=== PATIENT | female | born 1970 | race Caucasian/White ===

== ENCOUNTER → 2017-02-15 | Day surgery (SDC) | payer OTHER, BC ==
--- NOTE | 2017-02-16 17:09 | PATH ---
Surgical Pathology Report Patient Name: ANDRY COHEN [facility]. Rec. #: [id number] /Age/Gender: 1970 (Age: 46) / F Account: [id number] Location: [facility] Taken: 02/15/2017 Received: 02/15/2017 Reported: 02/16/2017 Physicians: Praveen Tavarez M.D. Specimen(s) Received RIGHT BREAST DENSITY (MASS) STEREOTACTIC BIOPSY Clinical History Nonpalpable lesion Mammographic findings: Suspicious Final Diagnosis BREAST, RIGHT, DENSITY (MASS), STEREOTACTIC BIOPSY: BENIGN BREAST TISSUE SHOWING STROMAL FIBROSIS AND MILD USUAL DUCTAL HYPERPLASIA (UDH). Electronically Signed Andreia Wang M.D. Gross Description Received in formalin, labeled "right breast with mass," are 8 faust-yellow, cylindrical portions of fibroadipose tissue ranging from 0.8-4.0 cm. in length and averaging 0.3 cm. in diameter. The specimen is submitted in toto in 2 cassettes. Time to formalin fixation: 6 minutes Total formalin fixation time: Approximately 6 hours. 02/15/2017 [facility]02/15/2017
== END | disposition home or self-care (01) ==
LOC: FMAMMOTONE 11:21
PROVIDERS: ATTEND Obstetrics & Gynecology
PROC: 0HBT3ZX Excision of Right Breast, Percutaneous Approach, Diagnostic (ICD-10-PCS; principal; 2017-02-15)
DX: N60.31 Fibrosclerosis of right breast (principal); N60.81 Other benign mammary dysplasias of right breast; N63 Unspecified lump in breast
CPT/HCPCS: 19081; 88305-TC; A4648

== ENCOUNTER 2017-05-16 16:49 | Inpatient (IN) | payer BC, OTHER ==
--- NOTE | 2017-05-16 17:13 | PDOC ---
History of Present Illness - General History Source: Patient Exam Limitations: No Limitations - History of Present Illness Initial Comments: 05/16/17 18:04 The patient is a 46 year old female, with a significant past medical history of HTN, HLD, Hypothyroidism who presents to the emergency department with worsening dyspnea today. Patient's dyspnea began earlier this month due to her recent move. Patient reports intermittent dyspnea with associated productive ( white) cough and clear rhinnorhea. Today, patient's difficulty breathing progressively worsened at home. Patient took one albuterol treatment with no relief. Patient's mother called EMS and was brought to the ED for further evaluation. EMS administered 1 albuterol tratment and IV Decadron. Upon evaluation, patient's vital signs are significant for 102 HR. She denies chest pain, headache or dizziness. She denies fever, chills, abdominal pain, nausea, vomit, diarrhea or constipation. She denies dysuria, frequency, urgency or hematuria. Patient denies recent travel. Allergies: NKA Past surgical history: C section and appendectomy Social history: Recreational MJ use PCP: Dr. Oumar Peterson <Avani Elizalde - Last Filed: 05/16/17 18:26> <Jay Ramos - Last Filed: 05/16/17 22:52> - General Chief Complaint: Shortness of Breath Stated Complaint: Shortness of Breath Time Seen by Provider: 05/16/17 17:13 Past History <Avani Elizalde - Last Filed: 05/16/17 18:26> - Past Medical History COPD: No HTN: Yes Hypercholesterolemia: Yes Thyroid Disease: Yes - Surgical History Appendectomy: Yes - Immunization History Immunization Up to Date: No - Suicide/Smoking/Psychosocial Hx Smoking History: Unknown if ever smoked Have you smoked in the past 12 months: No Hx Alcohol Use: Yes Drug/Substance Use Hx: Yes (marijuana) Substance Use Type: Marijuana <Jay Ramos - Last Filed: 05/16/17 22:52> - Past Medical History Allergies/Adverse Reactions: Allergies Allergy/AdvReac Type Severity Reaction Status Date / Time No Known Allergies Allergy Verified 05/16/17 18:18 Home Medications: Ambulatory Orders Levothyroxine [Synthroid -] 0.135 mg PO DAILY 08/31/15 Rosuvastatin Calcium [Crestor] 5 mg PO DAILY 08/31/15 Review of Systems - Review of Systems Able to Perform ROS?: Yes Comments:: 05/16/17 18:04 CONSTITUTIONAL: No fever, no chills, no fatigue EYES: No visual changes ENT: No ear pain, no sore throat CARDIOVASCULAR: No chest pain, no palpitations RESPIRATORY: +Difficulty breathing. + cough, +SOB GI: No abdominal pain, no nausea, no vomiting, no constipation, no diarrhea GENITOURINARY: No dysuria, no frequency, no hematuria MUSKULOSKELETAL: No back pain, no joint pain, no myalgias SKIN: No rash NEURO: No headache <Avani Elizalde - Last Filed: 05/16/17 18:26> *Physical Exam - Vital Signs Last Vital Signs Temp Pulse Resp BP Pulse Ox 98.6 F 102 H 19 151/80 97 05/16/17 17:04 05/16/17 17:04 05/16/17 17:04 05/16/17 17:04 05/16/17 17:04 - Physical Exam Comments: 05/16/17 18:04 CONSTITUTIONAL: Well-appearing; well-nourished; in no apparent distress HEAD: Normocephalic; atraumatic EYES: PERRL; EOM intact ENMT: External appears normal; normal oropharynx NECK: Supple; nontender; no cervical lymphadenopathy CARD: Normal S1, S2; no murmurs, rubs, or gallops RESP:+bilateral inspiratory and expiratory wheezing Normal chest excursion with respiration; breath equal bilaterally; no rhonchi, or rales ABD: Soft, non-distended; non-tender; no palpable organomegaly, no palpable hernias EXT: Normal ROM in all four extremities; non-tender to palpation; distal pulses intact SKIN: Warm, dry, no rash NEURO: No focal neurological deficiencies. <Avani Elizalde - Last Filed: 05/16/17 18:26> - Vital Signs Last Vital Signs Temp Pulse Resp BP Pulse Ox 98.6 F 102 H 19 151/80 97 05/16/17 17:04 05/16/17 17:04 05/16/17 17:04 05/16/17 17:04 05/16/17 17:04 <Jay Ramos - Last Filed: 05/16/17 22:52> Heart Score/ECG Review #1 05/16/17 18:26 ECG Reviewed by me 93 bpm NSR Normal ECG <Avani Elizalde - Last Filed: 05/16/17 18:26> ED Treatment Course - LABORATORY CBC & Chemistry Diagram: 05/16/17 17:29 05/16/17 17:29 - Medications Given in the ED: ED Medications Discontinued Medications Generic Name Dose Route Start Last Admin Trade Name Freq PRN Reason Stop Dose Admin Albuterol/Ipratropium 2 amp 05/16/17 17:37 05/16/17 17:48 Duoneb - NEB 05/16/17 17:38 2 amp ONCE ONE Administration <Avani Elizalde - Last Filed: 05/16/17 18:26> - LABORATORY CBC & Chemistry Diagram: 05/16/17 17:29 05/16/17 17:29 <Jay Ramos - Last Filed: 05/16/17 22:52> Medical Decision Making - Medical Decision Making 05/16/17 18:44 Patient is a 46-year-old female who presents with signs and symptoms of reactive airway disease. In the ER, patient is awake and alert, afebrile, with oxygen saturation of 98% on room air, with inspiratory and expiratory wheezing and bronchial breathing bilaterally. Patient received Combivent and Decadron by EMS. Will continue with Combivent therapy. Will obtain chest x-ray to rule out infiltrate. Will reassess. 05/16/17 21:53 Patient continues to be dyspneic and tachypneic; air entry is limited bilaterally; inspiratory and expiratory wheezing is present in all lung arguello. Patient's received additional albuterol nebulizers as well as magnesium sulfate without significant improvement. Patient will require admission for what appears to be acute asthma exacerbation. <Jay Ramos - Last Filed: 05/16/17 22:52> *DC/Admit/Observation/Transfer - Attestations Scribe Attestion: 05/16/17 18:04 Documentation prepared by Avani Elizalde, acting as nuclear medical tech for Jay Ramos MD <Avani Elizalde - Last Filed: 05/16/17 18:26> - Discharge Dispostion Admit: Yes - Attestations Physician Attestion: 05/16/17 18:44 The documentation was prepared by the scribe under my direct supervision. I have reviewed the documentation which correctly represents the findings, medical decision-making and critical action taken by me. <Jay Ramos - Last Filed: 05/16/17 22:52> Diagnosis at time of Disposition: Acute asthma exacerbation Qualifiers: Asthma severity: unspecified severity Asthma persistence: intermittent Qualified Code(s): J45.21 - Mild intermittent asthma with (acute) exacerbation - Discharge Dispostion Condition at time of disposition: Fair - Referrals Referrals: Oumar Peterson MD [Primary Care Provider] - - Patient Instructions - Post Discharge Activity
[2017-05-16] MEDS ORDERED: ALBUTEROL SO4 2.5/IPRATROPIUM 0.5 INH SOL 3 ML VIAL.NEB. NEB ONE ×2 (17:37→17:40)
[2017-05-16 17:57] LABS: BASOPHIL 0.3 % (0-2.0); EOSINOPHIL 3.3 % (0-4.5); MCH 29.6 pg (25.7-33.7); MCHC 33.8 g/dl (32.0-36.0); MEAN CELL VOLUME 87.6 fl (80-96); MEAN PLT VOLUME 6.9 fl (7.5-11.1); NEUTROPHILS 82.7 % (42.8-82.8); PLATELET COUNT 306 K/MM3 (134-434); WHITE BLOOD COUNT 11.3 K/mm3 (4.0-10.0)
[2017-05-16 18:44] LABS: ALBUMIN 3.8 g/dl (3.4-5.0); ALK PHOS 63 U/L (45-117); ANION GAP 11 (8-16); BILIRUBIN,TOTAL 0.3 mg/dL (0.2-1.0); CALCIUM 8.5 mg/dL (8.5-10.1); CO2 23 mmol/L (21-32); CREATININE 0.7 mg/dL (0.55-1.02); GLUCOSE,RANDOM 108 mg/dL (74-106); SGOT/AST 15 U/L (15-37); SGPT/ALT 25 U/L (12-78); TOT PROT 7.5 g/dl (6.4-8.2)
[2017-05-16] MEDS ORDERED: ALBUTEROL SO4 0.083% IH SOL 2.5 MG/3 ML VIAL.NEB. NEB ONE ×4 (19:29→21:15)
[2017-05-16] MEDS ORDERED: MAGNESIUM SULF 50% (8.12 MEQ/2 ML-1 GM VIAL) IVPB ONE (19:30)
[2017-05-16] MEDS ORDERED: MAGNESIUM SULF 50% (8.12 MEQ/2 ML-1 GM VIAL) ONE (19:33)
[2017-05-17] MEDS: ALBUTEROL SO4 0.083% IH SOL 2.5 MG/3 ML VIAL.NEB. NEB SCH ×2 (00:11→07:24)
[2017-05-17 01:45] VITALS: BMI 33.7
[2017-05-17] MEDS: methylPREDNISolone NA SUCC 125 MG/2 ML VIAL IVPUSH SCH ×2 (02:35→10:55)
[2017-05-17 07:05] LABS: MCH 29.4 pg (25.7-33.7); MCHC 33.3 g/dl (32.0-36.0); MEAN CELL VOLUME 88.1 fl (80-96); MEAN PLT VOLUME 7.1 fl (7.5-11.1); PLATELET COUNT 287 K/MM3 (134-434); RDW 13.3 % (11.6-15.6)
[2017-05-17 07:14] LABS: INR 1.08 (0.82-1.09); PROTHROMBIN TIME (PATIENT) 12.2 SEC (9.98-11.88)
[2017-05-17 07:30] LABS: ALBUMIN 3.7 g/dl (3.4-5.0); ANION GAP 10 (8-16); CALCIUM 9.1 mg/dL (8.5-10.1); CO2 23 mmol/L (21-32); GLUCOSE,RANDOM 166 mg/dL (74-106)
[2017-05-17 07:36] LABS: ALK PHOS 64 U/L (45-117); BILIRUBIN,TOTAL 0.6 mg/dL (0.2-1.0); CREATININE 0.9 mg/dL (0.55-1.02); SGOT/AST 10 U/L (15-37); SGPT/ALT 23 U/L (12-78); TOT PROT 7.3 g/dl (6.4-8.2)
[2017-05-17] MEDS ORDERED: LEVOTHYROXINE NA 125 MCG TABLET (FP) PO SCH (10:00)
--- NOTE | 2017-05-17 11:08 | EKG ---
Test Reason : Blood Pressure : / mmHG Vent. Rate : 093 BPM Atrial Rate : 093 BPM P-R Int : 150 ms QRS Dur : 088 ms QT Int : 366 ms P-R-T Axes : 038 060 026 degrees QTc Int : 455 ms NORMAL SINUS RHYTHM NORMAL ECG WHEN COMPARED WITH ECG OF 31-AUG-2015 17:11, RSR' PATTERN IN V1 IS NO LONGER PRESENT Confirmed by XOCIHLT KINGSTON MD ([id number]) on 05/17/2017 11:08:30 AM Referred By: Confirmed By:XOCHILT KINGSTON MD
--- NOTE | 2017-05-17 11:49 | CON.PULM ---
Consult Consult Specialty:: PULMONARY Referred by:: Dr. Peterson Reason for Consultation:: shortness of breath - History of Present Illness Chief Complaint: shortness of breath History of Present Illness: 46yo female with h/o HTN, hyperlipidemia, hypothyroidism who presents with 2 days of worsening shortness of breath. She had been moving boxes in a claudine room which triggered her symptoms including chest tightness, wheezing and a cough productive of clear sputum but sometimes with yellow streaks. No fevers, chills or sweats. 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 No cigarette smoke. She feels her breathing has not been normal since March since school started with occasional wheezing. - History Source History Provided By: Patient, Medical Record Limitations to Obtaining History: No Limitations - Past Medical History Gastrointestinal: Yes: Constipation, Hemorrhoids ...LMP: 08/26/15 - Past Surgical History Past Surgical History: Yes: Appendectomy, - Alcohol/Substance Use Hx Alcohol Use: Yes History of Substance Use: reports: Marijuana (1-2 joints/day) - Smoking History Smoking history: Unknown if ever smoked Have you smoked in the past 12 months: No - Social History Occupation: Teacher Home Medications - Allergies Allergies/Adverse Reactions: Allergies Allergy/AdvReac Type Severity Reaction Status Date / Time No Known Allergies Allergy Verified 05/16/17 18:18 - Home Medications Home Medications: Ambulatory Orders Levothyroxine [Synthroid -] 150 mg PO DAILY 08/31/15 Rosuvastatin Calcium [Crestor] 5 mg PO DAILY 08/31/15 Family Disease History - Family Disease History Family Disease History: Diabetes: Father (colon?, prostate?), Heart Disease: Father, Mother (colon?, asthma), CA: Father, Mother, Brother (skin), Respiratory : Mother Other Family History: 2 siblings with asthma Review of Systems - Review of Systems Constitutional: denies: Chills, Fever Eyes: denies: Recent Change in Vision HENT: reports: Nasal Congestion. denies: Throat Pain Neck: denies: Stiffness, Tenderness Cardiovascular: reports: Shortness of Breath. denies: Chest Pain, Edema, Palpitations Respiratory: reports: Cough, Exercise Intolerance, SOB on Exertion, Wheezing. denies: Hemoptysis Gastrointestinal: reports: Vomiting (with coughing). denies: Abdominal Pain, Nausea Genitourinary: denies: Dysuria, Hematuria Neurological: denies: Dizziness, Headache Physical Exam Vital Sings: Vital Signs Temperature 98.3 F 05/17/17 06:00 Pulse Rate 104 H 05/17/17 06:00 Respiratory Rate 20 05/17/17 06:00 Blood Pressure 126/64 05/17/17 06:00 O2 Sat by Pulse Oximetry (%) 98 05/17/17 00:09 Constitutional: Yes: Calm Eyes: Yes: Conjunctiva Clear, EOM Intact HENT: Yes: Atraumatic, Normocephalic Neck: Yes: Supple, Trachea Midline Cardiovascular: Yes: Regular Rate and Rhythm Respiratory: Yes: Regular, Diminished (decreased air entry), Wheezes (scattered) ...Clubbing: No Gastrointestinal: Yes: Normal Bowel Sounds, Soft. No: Tenderness Edema: No Neurological: Yes: Alert, Oriented Labs: CBC, BMP 05/17/17 06:33 05/17/17 06:33 Imaging - Results Chest X-ray: Report Reviewed, Image Reviewed (no infiltrates) Problem List - Problems (1) Acute asthma exacerbation Code(s): J45.901 - UNSPECIFIED ASTHMA WITH (ACUTE) EXACERBATION Qualifiers: Asthma severity: unspecified severity Asthma persistence: intermittent Qualified Code(s): J45.21 - Mild intermittent asthma with (acute) exacerbation (2) Hyperlipidemia Code(s): E78.5 - HYPERLIPIDEMIA, UNSPECIFIED (3) Hypothyroid Code(s): E03.9 - HYPOTHYROIDISM, UNSPECIFIED Assessment/Plan Acute Asthma Exacerbation Hypothyroidism Hypercholesterolemia - agree with IV medrol, can decrease to 40mg q8h - inhaled bronchodilators standing and PRN - monitor peak flow - ambulate - will need outpt PFTs and follow up - DVT prophylaxis Thank you for this consult Richard Xie MD
[2017-05-17] MEDS ORDERED: ALBUTEROL SO4 0.083% IH SOL 2.5 MG/3 ML VIAL.NEB. NEB PRN (11:52)
[2017-05-17] MEDS: ALBUTEROL SO4 2.5/IPRATROPIUM 0.5 INH SOL 3 ML VIAL.NEB. NEB SCH ×2 (11:56→17:25)
[2017-05-17] MEDS: methylPREDNISolone NA SUCC 40 MG/1 ML VIAL IVPUSH SCH (17:19)
[2017-05-17] MEDS ORDERED: PT OWN MED DRAWER 7, Y5N ONE (21:27)
--- NOTE | 2017-05-17 21:46 | HP ---
Admitting History and Physical - Primary Care Physician PCP: Oumar Peterson - Admission Chief Complaint: SOB, wheezing History of Present Illness: Pt states that mid March caught a cold and since then, on and off, started wheezing and feel SOB. Two days ago she cleaned a claudine room and started wheezing and fell SOB; she felt better getting outside the room. Yesterday morning pt woke up wheezing and feeling SOB; later in AM she started to gasp for air and came to ER. After several treatments she was admitted for asthma exacerbation. Pt states that had an asthmatic episode inn her 20's when was sick with a cold and nothing then. 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 Medications - Allergies Allergies/Adverse Reactions: Allergies Allergy/AdvReac Type Severity Reaction Status Date / Time No Known Allergies Allergy Verified 05/16/17 18:18 - Home Medications Home Medications: Ambulatory Orders Levothyroxine [Synthroid -] 150 mg PO DAILY 08/31/15 Rosuvastatin Calcium [Crestor] 5 mg PO DAILY 08/31/15 Family Disease History - Family Disease History Family Disease History: Diabetes: Father (colon?, prostate?), Heart Disease: Father, Mother (colon?, asthma), CA: Father, Mother, Brother (skin), Respiratory : Mother Other Family History: 2 siblings with asthma Review of Systems - Review of Systems Constitutional: denies: Chills, Fever Eyes: denies: Blurred Vision, Double Vision HENT: denies: Difficult Swallowing, Ear Discharge, Ear Pain, Nasal Congestion, Throat Pain Neck: denies: Pain on Movement, Stiffness Cardiovascular: denies: Chest Pain, Edema, Palpitations Respiratory: reports: Cough, SOB, Wheezing, Other (white sputum) Gastrointestinal: denies: Abdominal Pain, Diarrhea, Nausea Genitourinary: denies: Burning, Discharge Musculoskeletal: denies: Back Pain, Joint Swelling, Muscle Pain Integumentary: denies: Bruising, Rash Neurological: denies: Change in LOC, Change in Speech, Confusion, Dizziness, Unsteady Gait Endocrine: denies: Excessive Sweating, Intolerance to Cold Hematology/Lymphatic: denies: Easily Bruised, Excessive Bleeding Psychiatric: denies: Anxiety, Depression Physical Examination Vital Signs: Vital Signs Temperature 98.7 F 05/17/17 20:43 Pulse Rate 105 H 05/17/17 20:43 Respiratory Rate 20 05/17/17 20:43 Blood Pressure 138/96 05/17/17 20:43 O2 Sat by Pulse Oximetry (%) 98 05/17/17 11:57 Constitutional: Yes: No Distress, Calm Eyes: Yes: Conjunctiva Clear, EOM Intact, PERRL HENT: Yes: Normocephalic, Rhinnorhea. No: Drooling, Epistaxis, Hoarseness, Pharyngeal Erythema Neck: Yes: Trachea Midline. No: Lymphadenopathy Cardiovascular: Yes: Regular Rate and Rhythm, S1, S2 Respiratory: Yes: Regular, Wheezes. No: Rhonchi Gastrointestinal: Yes: Normal Bowel Sounds, Soft. No: Hepatomegaly, Tenderness ...Rectal Exam: Yes: Deferred Renal/: No: CVA Tenderness - Left, CVA Tenderness - Right Breast(s): Yes: Other (deferred) Musculoskeletal: Yes: Joint Swelling. No: Back Pain, Joint Stiffness Edema: No Neurological: Yes: Alert, Oriented, Other (symmetric motor and sensory examination in UE/ LE/ face.) Psychiatric: Yes: Alert, Oriented Labs: CBC, BMP 05/17/17 06:33 05/17/17 06:33 Imaging - Results Chest X-ray: Report Reviewed Problem List - Problems (1) Acute asthma exacerbation Code(s): J45.901 - UNSPECIFIED ASTHMA WITH (ACUTE) EXACERBATION Qualifiers: Asthma severity: unspecified severity Asthma persistence: intermittent Qualified Code(s): J45.21 - Mild intermittent asthma with (acute) exacerbation (2) Hyperlipidemia Code(s): E78.5 - HYPERLIPIDEMIA, UNSPECIFIED (3) Hypothyroid Code(s): E03.9 - HYPOTHYROIDISM, UNSPECIFIED (4) Hypertension Code(s): I10 - ESSENTIAL (PRIMARY) HYPERTENSION Assessment/Plan IV Steroids Albuterol nebulized Pulmonary consult- d/w Dr. GORDILLO To monitor glucose; diet to be adjusted to NCS (continue low salt and low cholesterol) AM labs
[2017-05-17] MEDS: ROSUVASTATIN CA 5 MG TABLET (FP) PO SCH (21:50)
[2017-05-18] MEDS: methylPREDNISolone NA SUCC 40 MG/1 ML VIAL IVPUSH SCH ×3 (01:45→17:48)
[2017-05-18] MEDS: LEVOTHYROXINE NA 150 MCG TABLET PO SCH (06:04)
[2017-05-18] MEDS: ALBUTEROL SO4 2.5/IPRATROPIUM 0.5 INH SOL 3 ML VIAL.NEB. NEB SCH ×4 (06:56→17:33)
[2017-05-18 08:15] LABS: MCH 29.2 pg (25.7-33.7); MCHC 32.6 g/dl (32.0-36.0); MEAN CELL VOLUME 89.6 fl (80-96); MEAN PLT VOLUME 7.3 fl (7.5-11.1); PLATELET COUNT 315 K/MM3 (134-434); RDW 13.6 % (11.6-15.6); WHITE BLOOD COUNT 21.6 K/mm3 (4.0-10.0)
[2017-05-18 08:48] LABS: ANION GAP 12 (8-16); CO2 20 mmol/L (21-32); CREATININE 0.8 mg/dL (0.55-1.02); GLUCOSE,RANDOM 143 mg/dL (74-106)
[2017-05-18 09:34] LABS: TOTAL CELLS COUNTED 100
[2017-05-18 09:35] LABS: PLATELET ESTIMATE ADEQUATE
--- NOTE | 2017-05-18 09:51 | PN ---
Progress Note, Physician History of Present Illness: Pt with some improvement in breathing, still coughs and wheezing, occasionally severe. Pt w/o CP, palp, abd pain. - Current Medication List Current Medications: Active Medications Albuterol Sulfate (Ventolin 0.083% Nebulizer Soln -) 1 amp NEB Q4H PRN PRN Reason: SHORT OF BREATH/WHEEZING Albuterol/Ipratropium (Duoneb -) 1 amp NEB QIDR [facility] Last Admin: 05/18/17 06:56 Dose: 1 amp Hydrochlorothiazide (Hctz -) 12.5 mg PO DAILY [facility] Levothyroxine Sodium (Synthroid -) 150 mcg PO DAILY@0700 [facility] Last Admin: 05/18/17 06:04 Dose: 150 mcg Losartan Potassium (Cozaar -) 50 mg PO DAILY [facility] Methylprednisolone Sodium Succinate (Solu-Medrol -) 40 mg IVPUSH Q8H-IV [facility] Last Admin: 05/18/17 01:45 Dose: 40 mg Rosuvastatin Calcium (Crestor -) 5 mg PO HS [facility] Last Admin: 05/17/17 21:50 Dose: 5 mg - Objective Vital Signs: Vital Signs Temperature 98.4 F 05/18/17 08:58 Pulse Rate 98 H 05/18/17 08:58 Respiratory Rate 20 05/18/17 08:58 Blood Pressure 155/94 05/18/17 08:58 O2 Sat by Pulse Oximetry (%) 96 05/17/17 21:00 Constitutional: Yes: No Distress, Calm Cardiovascular: Yes: Regular Rate and Rhythm, S1, S2 Respiratory: Yes: Regular, CTA Bilaterally. No: Rales Gastrointestinal: Yes: Normal Bowel Sounds, Soft. No: Tenderness Edema: No Neurological: Yes: Alert, Oriented Labs: CBC, BMP 05/18/17 07:30 05/18/17 07:30 INR, PTT INR 1.08 (0.82-1.09) 05/17/17 06:33 Problem List - Problems (1) Acute asthma exacerbation Code(s): J45.901 - UNSPECIFIED ASTHMA WITH (ACUTE) EXACERBATION Qualifiers: Asthma severity: unspecified severity Asthma persistence: intermittent Qualified Code(s): J45.21 - Mild intermittent asthma with (acute) exacerbation (2) Hyperlipidemia Code(s): E78.5 - HYPERLIPIDEMIA, UNSPECIFIED (3) Hypothyroid Code(s): E03.9 - HYPOTHYROIDISM, UNSPECIFIED (4) Hypertension Code(s): I10 - ESSENTIAL (PRIMARY) HYPERTENSION Assessment/Plan IV Steroids Albuterol nebulized Pulmonary consult appreciated To monitor glucose; diet to be adjusted to NCS (continue low salt and low cholesterol) AM labs OOBTC
[2017-05-18] MEDS ORDERED: [UNRECOGNIZED DRUG - OTHER] PO SCH (10:00)
[2017-05-18] MEDS ORDERED: LOSARTAN PO SCH (10:00)
[2017-05-18] MEDS: ACETAMINOPHEN 325 MG TABLET (FP) PO PRN (10:04)
[2017-05-18] MEDS: HYDROCHLOROTHIAZIDE 12.5 MG CAPSULE (FP) PO SCH (10:13)
[2017-05-18] MEDS: LOSARTAN POTASSIUM 50 MG TABLET (FP) PO SCH (10:13)
--- NOTE | 2017-05-18 14:56 | PN ---
Progress Note (short form) - Note Progress Note: PULMONARY VSS/AFEBRILE ANICTERIC SCATTERED MINIMAL EXP WHEEZE S1S2 BS+ NO EDEMA PEAK FLOW PENDING LABS/MEDS/NOTES/IMAGES REVIEWED Acute Asthma Exacerbation Hypothyroidism Hypercholesterolemia - IV medrol tapering - inhaled bronchodilators standing and PRN - monitor peak flow - ambulate - will need outpt PFTs and follow up - DVT prophylaxsis Sarah CHAPA MD
[2017-05-18] MEDS ORDERED: PT OWN MED DRAWER 7, Y5N ONE (21:38)
[2017-05-18] MEDS: ROSUVASTATIN CA 5 MG TABLET (FP) PO SCH (21:40)
[2017-05-19] MEDS: ALBUTEROL SO4 2.5/IPRATROPIUM 0.5 INH SOL 3 ML VIAL.NEB. NEB SCH ×4 (00:05→17:19)
[2017-05-19] MEDS: methylPREDNISolone NA SUCC 40 MG/1 ML VIAL IVPUSH SCH ×3 (01:09→17:34)
[2017-05-19] MEDS: LEVOTHYROXINE NA 150 MCG TABLET PO SCH (06:39)
[2017-05-19] MEDS: ACETAMINOPHEN 325 MG TABLET (FP) PO PRN (06:42)
[2017-05-19 07:49] LABS: MCH 29.3 pg (25.7-33.7); MCHC 32.7 g/dl (32.0-36.0); MEAN CELL VOLUME 89.5 fl (80-96); MEAN PLT VOLUME 7.1 fl (7.5-11.1); PLATELET COUNT 345 K/MM3 (134-434); RDW 13.3 % (11.6-15.6); WHITE BLOOD COUNT 23.2 K/mm3 (4.0-10.0)
[2017-05-19 08:11] LABS: ANION GAP 10 (8-16); CO2 24 mmol/L (21-32); CREATININE 0.8 mg/dL (0.55-1.02); GLUCOSE,RANDOM 131 mg/dL (74-106)
[2017-05-19] MEDS ORDERED: PT OWN MED DRAWER 7, Y5N ONE ×2 (10:38→21:56)
[2017-05-19] MEDS: LOSARTAN POTASSIUM 50 MG TABLET (FP) PO SCH (10:40)
[2017-05-19] MEDS: HYDROCHLOROTHIAZIDE 12.5 MG CAPSULE (FP) PO SCH (10:40)
--- NOTE | 2017-05-19 13:35 | PN ---
Progress Note (short form) - Note Progress Note: PULMONARY 143/95/AFEBRILE ANICTERIC SCATTERED MINIMAL EXP WHEEZE S1S2 BS+ NO EDEMA PEAK FLOW 280 l/m LABS/MEDS/NOTES/IMAGES REVIEWED Acute Asthma Exacerbation Hypothyroidism Hypercholesterolemia - IV medrol tapering - inhaled bronchodilators standing and PRN - monitor peak flow - ambulate - will need outpt PFTs and follow up - DVT prophylaxsis - bp control Sarah CHAPA MD
[2017-05-19] MEDS ORDERED: guaiFENesin 200 MG/10 ML 10 ML UNIT-DOSE CUPS PO PRN (13:37)
--- NOTE | 2017-05-19 13:40 | PN ---
Progress Note, Physician History of Present Illness: Pt with some improvement in breathing, still is coughing and wheezing, occasionally severe;Pt also is coughing and wheezing with walking. Pt w/o CP, palp, abd pain. - Current Medication List Current Medications: Active Medications Acetaminophen (Tylenol -) 650 mg PO Q6H PRN PRN Reason: PAIN LEVEL 1-5 Last Admin: 05/19/17 06:42 Dose: 650 mg Albuterol Sulfate (Ventolin 0.083% Nebulizer Soln -) 1 amp NEB Q4H PRN PRN Reason: SHORT OF BREATH/WHEEZING Albuterol/Ipratropium (Duoneb -) 1 amp NEB QIDR [facility] Last Admin: 05/19/17 11:08 Dose: 1 amp Guaifenesin (Robitussin -) 10 ml PO Q4H PRN PRN Reason: COUGH Hydrochlorothiazide (Hctz -) 12.5 mg PO DAILY [facility] Last Admin: 05/19/17 10:40 Dose: 12.5 mg Levothyroxine Sodium (Synthroid -) 150 mcg PO DAILY@0700 [facility] Last Admin: 05/19/17 06:39 Dose: 150 mcg Losartan Potassium (Cozaar -) 50 mg PO DAILY [facility] Last Admin: 05/19/17 10:40 Dose: 50 mg Methylprednisolone Sodium Succinate (Solu-Medrol -) 20 mg IVPUSH Q8H-IV [facility] Rosuvastatin Calcium (Crestor -) 5 mg PO HS [facility] Last Admin: 05/18/17 21:40 Dose: 5 mg - Objective Vital Signs: Vital Signs Temperature 97.8 F 05/19/17 08:45 Pulse Rate 94 H 05/19/17 08:45 Respiratory Rate 19 05/19/17 08:45 Blood Pressure 143/95 05/19/17 08:45 O2 Sat by Pulse Oximetry (%) 94 L 05/19/17 09:00 Constitutional: Yes: No Distress, Calm Cardiovascular: Yes: Regular Rate and Rhythm, S1, S2 Respiratory: Yes: Regular, CTA Bilaterally, Rales (manly at bases), Wheezes Gastrointestinal: Yes: Normal Bowel Sounds. No: Tenderness Edema: No Neurological: Yes: Alert, Oriented Labs: CBC, BMP 05/19/17 06:45 05/19/17 06:45 INR, PTT INR 1.08 (0.82-1.09) 05/17/17 06:33 Problem List - Problems (1) Acute asthma exacerbation Code(s): J45.901 - UNSPECIFIED ASTHMA WITH (ACUTE) EXACERBATION Qualifiers: Asthma severity: unspecified severity Asthma persistence: intermittent Qualified Code(s): J45.21 - Mild intermittent asthma with (acute) exacerbation (2) Hyperlipidemia Code(s): E78.5 - HYPERLIPIDEMIA, UNSPECIFIED (3) Hypothyroid Code(s): E03.9 - HYPOTHYROIDISM, UNSPECIFIED (4) Hypertension Code(s): I10 - ESSENTIAL (PRIMARY) HYPERTENSION Assessment/Plan IV Steroids Albuterol nebulized. Add Robitussin Pulmonary consult appreciated To monitor glucose; diet to be adjusted to NCS (continue low salt and low cholesterol) AM labs OOBTC
[2017-05-19] MEDS: guaiFENesin/D-M SUGAR-FREE/ACLHOL-FREE 118 ML BOTTLE PO PRN (15:11)
[2017-05-19] MEDS: ROSUVASTATIN CA 5 MG TABLET (FP) PO SCH (21:58)
[2017-05-20] MEDS: ALBUTEROL SO4 2.5/IPRATROPIUM 0.5 INH SOL 3 ML VIAL.NEB. NEB SCH ×3 (00:05→11:46)
[2017-05-20] MEDS: methylPREDNISolone NA SUCC 40 MG/1 ML VIAL IVPUSH SCH ×2 (01:12→09:09)
[2017-05-20] MEDS: LEVOTHYROXINE NA 150 MCG TABLET PO SCH (06:07)
[2017-05-20 08:43] LABS: MCH 29.1 pg (25.7-33.7); MCHC 32.6 g/dl (32.0-36.0); MEAN CELL VOLUME 89.4 fl (80-96); MEAN PLT VOLUME 7.1 fl (7.5-11.1); PLATELET COUNT 350 K/MM3 (134-434); RDW 13.4 % (11.6-15.6); WHITE BLOOD COUNT 17.9 K/mm3 (4.0-10.0)
[2017-05-20] MEDS ORDERED: PT OWN MED DRAWER 7, Y5N ONE ×2 (08:46→09:25)
[2017-05-20 08:48] VITALS: BP 136/88; PULSE 92; TEMP 98.3
[2017-05-20 09:09] LABS: ANION GAP 15 (8-16); CALCIUM 9.3 mg/dL (8.5-10.1); CO2 21 mmol/L (21-32); CREATININE 0.9 mg/dL (0.55-1.02); GLUCOSE,RANDOM 128 mg/dL (74-106)
[2017-05-20] MEDS: HYDROCHLOROTHIAZIDE 12.5 MG CAPSULE (FP) PO SCH (09:10)
[2017-05-20] MEDS: LOSARTAN POTASSIUM 50 MG TABLET (FP) PO SCH (09:10)
[2017-05-20] MEDS: guaiFENesin/D-M SUGAR-FREE/ACLHOL-FREE 118 ML BOTTLE PO PRN (09:11)
--- NOTE | 2017-05-20 11:04 | PN ---
Progress Note (short form) - Note Progress Note: PULMONARY PEAK FLOW 250 L/M AFEBRILE ANICTERIC SCATTERED MINIMAL EXP WHEEZE S1S2 BS+ NO EDEMA LABS/MEDS/NOTES/IMAGES REVIEWED Acute Asthma Exacerbation resolved Hypothyroidism Hypercholesterolemia - medrol changed to oral - inhaled bronchodilators standing and PRN - monitor peak flow - ambulate - will need outpt PFTs and follow up - DVT prophylaxsis - bp control - no objection to continuing treatment as an outpatient Sarah CHAPA MD
[2017-05-20] MEDS: predniSONE 20 MG TABLET (UD) PO SCH ×2 (12:06→14:09)
--- NOTE | 2017-05-20 14:12 | DS ---
Physical Examination Vital Signs: Vital Signs Temperature 98.3 F 05/20/17 08:48 Pulse Rate 92 H 05/20/17 08:48 Respiratory Rate 20 05/20/17 08:48 Blood Pressure 136/88 05/20/17 08:48 O2 Sat by Pulse Oximetry (%) 94 L 05/20/17 09:00 Findings/Remarks: Pt's breathing is better, less wheezing, less cough. Pt w/o CP, palp, abd pain. Pt's treatment was reviewed with pt and pt's mother (at bedside; pt will stay at her house this week); all questions were answered. Time spent in managing pt's discharge: over 55 minutes. Constitutional: Yes: No Distress, Calm Cardiovascular: Yes: Regular Rate and Rhythm, S1, S2 Respiratory: Yes: Regular, Wheezes (minimal,with forced expiration). No: Rhonchi Gastrointestinal: Yes: Normal Bowel Sounds, Soft. No: Tenderness Edema: No Neurological: Yes: Alert, Oriented Labs: CBC, BMP 05/20/17 07:30 05/20/17 07:30 Discharge Summary Reason For Visit: ASTHMA WITH ACUTE EXACERBATION Current Active Problems Acute asthma exacerbation (Acute) Hospital Course: Pt came to ER c/o SOB, wheezing, cough. Pt was admitted for asthma exacerbation , started on IV steroids. Pt was seen by Pulmonary (Dr. Xie/ [place]). Pt condition improved, steroids were tapered. Pt to be DC'ed home on Prednisone, and monitor as outpatient. Condition: Fair - Instructions Diet, Activity, Other Instructions: Diet: Low salt, Low cholesterol, NCS To rest at home for few days. Referrals: Oumar Peterson MD [Primary Care Provider] - (in 1-2 weeks) Richard Xie MD, MD [Staff Physician] - (2-3 weeks) Disposition: HOME - Home Medications Comprehensive Discharge Medication List: Ambulatory Orders this list might NOT be accurate. Levothyroxine [Synthroid -] 150 mg PO DAILY 08/31/15 Rosuvastatin Calcium [Crestor] 5 mg PO DAILY 08/31/15 Losartan 50Mg/Hctz 12.5MG 1 tab PO DAILY 05/18/17 Prednisone Asmanex Combivent Resprimat
[2017-05-20] MEDS ORDERED: MOMETASONE FUROATE 110 MCG/IH INHALER IH SCH (14:15)
[2017-05-20] MEDS ORDERED: predniSONE 20 MG TABLET (UD) PO SCH (22:00)
== END 2017-05-20 15:19 | disposition home or self-care (01) | DRG 203 ==
LOC: JER 16:49 → JERBED 22:52 → J6S 05-17 00:23
PROVIDERS: ADMIT Specialist; ATTEND Specialist
DX: J45.901 Unspecified asthma with (acute) exacerbation (principal); E78.5 Hyperlipidemia, unspecified; E03.9 Hypothyroidism, unspecified; I10 Essential (primary) hypertension
CPT/HCPCS: 36415; 71020-TC; 80048; 80053; 84703; 85025; 85027; 85610; 93005; 93010; 94150; 94640; 99282-25